=== PATIENT | female | born 2000 | race Caucasian/White ===

== ENCOUNTER → 2019-09-28 | Outpatient (CLI) | payer BC | LOC: ZCOL.LAB 20:15 | DX: Z20.828 Contact with and (suspected) exposure to other viral communicable diseases (principal) ==

== ENCOUNTER 2020-12-23 18:44 | Emergency (ER) | payer BC ==
[~2020-12-23] VITALS: Ht 170.2 cm; Wt 72.7 kg
[2020-12-23 18:51] VITALS: TEMP 99
[2020-12-23] MEDS ORDERED: NORCO 325 MG-51 TAB PO (19:47)
[2020-12-23 19:57] VITALS: BP 132/70; PULSE 76
== END 2020-12-23 19:57 | disposition home or self-care (01) ==
LOC: COL.ER 18:44
DX: S52.121A Displaced fracture of head of right radius, initial encounter for closed fracture (principal); W01.0XXA Fall on same level from slipping, tripping and stumbling without subsequent striking against object, initial encounter